=== PATIENT | male | born 1945 | race Caucasian/White ===

== ENCOUNTER 2016-09-25 16:16 | Inpatient (IN) | payer OTHER ==
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
--- NOTE | ~2016-09-25 | HP ---
History And Physical [place] [address] [facility] [place]. [address] NAME: DANNY MEDINA : 41 STATUS : ADM IN [facility]#: [id number] AGE: 71 ADM/REG DATE : 09/25/16 MR#: [id number] REPORT SERV DATE: 09/26/16 DICTATED BY: PATTIE BURGER DATE: 09/25/16 REPORT STATUS : Draft TRANSCRIBED BY: MODL DATE: 09/25/16 DATE OF ADMISSION: 09/25/2016 CHIEF COMPLAINT: Fall. 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 Upon evaluation in the emergency room, the patient was noted to have right shoulder pain that was constant, moderate severity that has been quite sharp, worsened with breathing cycle and palpation, no really relieving symptoms. No headache, nausea, vomiting, fever, chills, diarrhea, or cardiac-type pain, but does have chest wall pain that was also nonradiating. Symptoms occurred immediately after fall off his lawnmower earlier today. REVIEW OF SYSTEMS: Additional 10-point review of systems negative for that noted in HPI. PAST MEDICAL HISTORY: Type 2 diabetes, coronary artery disease with history thrombectomy, hyperlipidemia, nicotine dependence and likely COPD. SURGICAL HISTORY: Right and left inguinal hernias, appendectomy, tonsillectomy. 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 FAMILY HISTORY: Negative for diabetes, heart disease, hypertension, otherwise fairly healthy. SOCIAL HISTORY: Single, accompanied by daughter. Smokes approximately [id number] to three packs per day. He reports since he has been in first grade, he has been smoking. Rare alcohol, typically a nightcap, but no history of withdrawals and no illicits. Retired. Fairly functional on a daily basis. ALLERGIES: NO KNOWN DRUG ALLERGIES. HOME MEDICATIONS: Aspirin, Lipitor, , Coreg, Zyrtec, Glucotrol, Singulair, omeprazole. EKG, normal sinus rhythm, rate of 69, QTc 419. Sinusoidal changes had also been noted in V4, 5, and 6 back in 2014. PHYSICAL EXAMINATION: GENERAL: The patient's blood pressure 169/86, temperature 97.0, pulse 79, O2 is 93% on room air, 100% on 2 L, respirations 16. GENERAL: Mildly discomfort, but in no acute distress at rest. Talking and smiling manner. EYES: No scleral icterus. EOMI. History And Physical [place] [address] [address] [facility]. [address] NAME: DANNY MEDINA : 41 STATUS : ADM IN [facility]#: [id number] AGE: 71 ADM/REG DATE : 09/25/16 MR#: [id number] REPORT SERV DATE: 09/26/16 DICTATED BY: PATTIE BURGER DATE: 09/25/16 REPORT STATUS : Draft TRANSCRIBED BY: BRANNON DATE: 09/25/16 ENT: Nares patent. Tongue midline. RESPIRATORY: Mild decreased respiratory sounds on right side due to difficulty with deep breath from pain and difficulty, but otherwise clear. No wheezes. Chest wall does have palpable air pocket on right anterior chest wall. CV: Regular rate. No rubs and no gallops. EXTREMITIES: Cap refill less than 2 seconds. Does have clubbing of fingers and multiple digits. GI: Soft, nontender, nondistended. Bowel sounds positive. : Deferred. MUSCULOSKELETAL: Moves all extremities x4. Does have pain on right side, clavicle, and multiple ribs on right rib cage. SKIN: Warm and dry with palpable air underneath the chest wall. LYMPH: No cervical lymphadenopathy. HEME: No bleeding or bruising. NEURO: Alert and oriented. Moves all extremities x4. PSYCH: Appropriate mood and affect. Calm. CT with contrast noted for right clavicle fracture, right 5, 6, and 7 rib fractures. Small anterior pneumothorax on the right, extensive subcutaneous air on the right, severe COPD. CMP: Grossly within normal limits with mildly elevated glucose of 145. LFTs within normal limits. CBC: WBC count 17.8 without left shift, H and H 13.9 and 41.7, MCV 92.3, platelets 186. Right shoulder clavicular and right fifth and sixth rib fracture otherwise negative right shoulder. Portable chest, right rib fractures with very small right apical pneumothorax and has generous subcutaneous emphysema in the chest wall, right clavicular fracture. ASSESSMENT AND PLAN: 1. Pneumothorax. 2. Subcutaneous air. 3. Chronic obstructive pulmonary disease. 4. Coronary artery disease. 5. Tobacco use. 6. Intractable pain. 7. Rib and clavicular fracture. 8. Fall. 9. Diabetes, type 2. 10.Leukocytosis. PLAN: 1. Pneumothorax due to size. We will do serial x-rays, O2 Pulmonary evaluation. We will notify ICU in case of acute decompensation; however, the patient has been able to maintain oxygenation sats without O2 at 93% and with O2 up to 100%. He does have COPD changes on imaging, although denies any prior history or diagnosis. 2. Subcutaneous air. We will follow up chest wall pulmonary evaluation. Monitor continuous O2 sats. 3. COPD. The patient is although counseled multiple times and is not currently ready to stop smoking. We will continue O2 DuoNeb. History And Physical [address] [address] NAME: DANNY MEDINA : 41 STATUS : ADM IN [facility]#: [id number] AGE: 71 ADM/REG DATE : 09/25/16 MR#: [id number] REPORT SERV DATE: 09/26/16 DICTATED BY: PATTIE BURGER DATE: 09/25/16 REPORT STATUS : Draft TRANSCRIBED BY: BRANNON DATE: 09/25/16 4. CAD. Continue home medications. 5. Tobacco use. Two and half to three pack per day smoking since he was in first grade. The patient has also had history of coronary artery disease, appears to have COPD on imaging and has had history of vocal cord cancer status post radiation. The patient still declines cessation of smoking. We will offer nicotine patch and continue encouragement. 6. Encouragement of cessation. 7. Intractable pain, IV pain medications, topical lidocaine, and Toradol. Minimal improvement with morphine, change to Dilaudid. 8. Rib and clavicular fracture. Ortho evaluation mainly for evaluation in the presence of respiratory involvement with clavicular fracture. We will keep in sling and supportive treatment. 9. Fall. Same-level fall off a asp net developer. OT/PT due to new requirements for sling to assist with activity. 10.Diabetes, type 2. Sliding scale insulin. 11.Leukocytosis. Recently reports he was being treated for pneumonia over a week ago. Complete seven-day treatment. Unclear, this appears to be more consistent with . Did not appear to have an active or acute infection. We will monitor labs, cultures, procalcitonin. Antibiotics if indicated. We will hold antibiotics this time empirically. Case discussed with the patient and daughter, Belinda Calzada, her number is [phone] for contact. All questions answered. The patient is also aware if acute decompensation of respiratory status as possibility for progressive oxygenation, may require higher level care including ICU stay, the patient is aware. DDN/MODL Pattie Burger MD / [id number] CC: Rick Thayer M.D.
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
[~2016-09-25 16:16] MED LIST: ASAB PO; ASABAYER PO; ASCRIPTIN PO; BRILINTA90 MG PO; COREG3 OR; COREG6 PO; EFFIENT10 PO; GLUCPH PO; LIPITOR10 PO; NITROSTAT0.3 MG; PEP20 PO; PLAVIX PO; PRILO PO; PRIN2.5 PO; SPIRO25 PO; SUPER B COMP OR; SYMBICORT 160/41 INH INH; TRAZ50 OR; VITAMIN C100 MG PO; VITAMIN D31000 UNIT PO
[2016-09-25 16:30] LABS: BASOPHILS 0.1 %; BASOPHILS ABSOLUTE 0.02 10/3/uL (0.0-0.16); EOSINOPHILS 0.2 %; EOSINOPHILS ABSOLUTE 0.04 10/3/uL (0.0-0.53); ER CBC TAT 0 Hrs 05 Mins; HEMATOCRIT 41.7 % (40.0-51.0); HEMOGLOBIN 13.9 g/dL (13.6-17.8); IMMATURE GRANULOCYTES 0.3 %; IMMATURE GRANULOCYTES ABSOLUTE 0.05 10/3/uL (0.0-0.11); LYMPHOCYTES 9.7 %; LYMPHOCYTES ABSOLUTE 1.73 10/3/uL (0.67-4.30); MANUAL DIFF NO %; MEAN CORPUS HGB CONC 33.3 g/dL (32.0-36.0); MEAN CORPUSCULAR HEMOGLOB 30.8 pg (26.0-34.0); MEAN CORPUSCULAR VOLUME 92.3 fL (80-100); MEAN PLATELET VOLUME 10.2 fL (9.2-13.0); MONOCYTES 8.3 %; MONOCYTES ABSOLUTE 1.48 10/3/uL (0.21-1.20); NEUTROPHILS 81.4 %; NEUTROPHILS ABSOLUTE 14.51 10/3/uL (2.02-8.40); PLATELET COUNT 186 10/3/uL (150-400); RBC DISTRIBUTION WIDTH 13.5 % (12.0-16.0); RED CELL COUNT 4.52 10/6/uL (4.7-6.1); WHITE BLOOD CELLS 17.8 10/3/uL (4.5-10.5)
[2016-09-25 16:49] LABS: ALBUMIN 3.8 G/DL (3.5-5.0); ALKALINE PHOSPHATASE 67 U/L (45-117); CALCIUM, SERUM 8.8 MG/DL (8.5-10.4); CHLORIDE, SERUM 104 MMOL/L (96-112); CO2 (CARBON DIOXIDE) 26 MMOL/L (24-34); CREATININE 0.91 MG/DL (0.70-1.30); GFR AFRICAN AMERICAN 97 ML/MIN (>=60); GFR NON AFRICAN AMERICAN 83 ML/MIN (>=60); GLOBULIN 3.8 G/DL (2.5-4.1); GLUCOSE, SERUM 145 MG/DL (60-99); SGOT(AST) 15 U/L (5-40); SGPT(ALT) 19 U/L (5-65); SODIUM, SERUM 138 MMOL/L (135-148); TOTAL BILIRUBIN 1.1 MG/DL (0-1.2); TOTAL PROTEIN 7.6 G/DL (6.0-8.5)
[2016-09-25 16:50] LABS: BUN (BLOOD UREA NITROGEN) 23 MG/DL (6-23)
[2016-09-25] MEDS ORDERED: LIPITOR40 PO (19:31)
[2016-09-25] MEDS ORDERED: ASA5GR PO (19:31)
[2016-09-25] MEDS ORDERED: PRILO PO (19:31)
[2016-09-25] MEDS ORDERED: COREG25 PO (19:31)
[2016-09-25] MEDS ORDERED: SINGULAIR1 PO (19:32)
[2016-09-25] MEDS ORDERED: ASTELIN NAS (19:32)
[2016-09-25] MEDS ORDERED: ZYRTEC ALLGY10 MG PO (19:32)
[2016-09-25] MEDS ORDERED: GLUCOTRO10 PO (19:32)
[2016-09-26 04:09] LABS: BASOPHILS 0.1 %; BASOPHILS ABSOLUTE 0.01 10/3/uL (0.0-0.16); EOSINOPHILS 0.8 %; HEMATOCRIT 38.4 % (40.0-51.0); IMMATURE GRANULOCYTES 0.2 %; IMMATURE GRANULOCYTES ABSOLUTE 0.03 10/3/uL (0.0-0.11); LYMPHOCYTES 21.3 %; LYMPHOCYTES ABSOLUTE 2.74 10/3/uL (0.67-4.30); MANUAL DIFF NO %; MEAN CORPUS HGB CONC 33.9 g/dL (32.0-36.0); MEAN CORPUSCULAR HEMOGLOB 30.9 pg (26.0-34.0); MEAN CORPUSCULAR VOLUME 91.2 fL (80-100); MEAN PLATELET VOLUME 10.3 fL (9.2-13.0); MONOCYTES 11.5 %; MONOCYTES ABSOLUTE 1.48 10/3/uL (0.21-1.20); NEUTROPHILS 66.1 %; NEUTROPHILS ABSOLUTE 8.52 10/3/uL (2.02-8.40); PLATELET COUNT 174 10/3/uL (150-400); RBC DISTRIBUTION WIDTH 13.4 % (12.0-16.0); RED CELL COUNT 4.21 10/6/uL (4.7-6.1); WHITE BLOOD CELLS 12.9 10/3/uL (4.5-10.5)
[2016-09-26 04:40] LABS: BUN (BLOOD UREA NITROGEN) 23 MG/DL (6-23); CALCIUM, SERUM 8.8 MG/DL (8.5-10.4); CHLORIDE, SERUM 103 MMOL/L (96-112); CO2 (CARBON DIOXIDE) 27 MMOL/L (24-34); CREATININE 1.01 MG/DL (0.70-1.30); GFR AFRICAN AMERICAN 85 ML/MIN (>=60); GFR NON AFRICAN AMERICAN 73 ML/MIN (>=60); GLUCOSE, SERUM 146 MG/DL (60-99); POTASSIUM, SERUM 3.9 MMOL/L (3.5-5.3); SODIUM, SERUM 139 MMOL/L (135-148)
[2016-09-26 17:25] LABS: ASCORBIC ACID (UR NOT ORDER) NEG (NEG); BILIRUBIN, URINE NEGATIVE (NEG); KETONE, URINE NEGATIVE (NEG); LEUKOCYTE ESTERASE(NOT OR NEG (NEG); WBC (NOT ORDERED) (RFLEX) 1 (0-5)
[2016-09-27] MEDS ORDERED: LIDODERM TOP (11:02)
[2016-09-27] MEDS ORDERED: NORCO1 TA1 PO (11:02)
== END 2016-09-27 15:14 | disposition home health service (06) | DRG 200 ==
LOC: ER 16:16 → 5NO 20:56
PROVIDERS: Emergency Medicine; Student in an Organized Health Care Education/Training Program
DX: S27.0XXA Traumatic pneumothorax, initial encounter (principal); S22.41XA Multiple fractures of ribs, right side, initial encounter for closed fracture; E11.9 Type 2 diabetes mellitus without complications; J44.9 Chronic obstructive pulmonary disease, unspecified; Y93.89 Activity, other specified; E78.5 Hyperlipidemia, unspecified; F17.210 Nicotine dependence, cigarettes, uncomplicated; S42.021A Displaced fracture of shaft of right clavicle, initial encounter for closed fracture; W31.89XA Contact with other specified machinery, initial encounter; Z79.84 Long term (current) use of oral hypoglycemic drugs
CPT/HCPCS: 71010; 71260; 73030-RT; 80048; 80053; 81001; 82962; 83735; 84484; 85025; 87040; 87449; 93005; 94640; 96374; 96375; 97166-GO; 99285; A9270-GY; J1170; J1885; J2405